=== PATIENT | female | born 1990 | race Two or more races ===

== ENCOUNTER 2017-09-22 09:56 | Emergency (ER) | payer MEDICAID, OTHER ==
[~2017-09-22] VITALS: Ht 152.4 cm; Wt 91.6 kg
[~2017-09-22 09:56] MED LIST: NKM
[2017-09-22 10:36] LABS: APPEARANCE,URINE CLEAR; BILIRUBIN, URINE NEGATIVE (NEGATIVE); COLOR,URINE PALE YELLOW; GLUCOSE, URINE (UA) NEGATIVE (NEGATIVE); KETONES,URINE NEGATIVE (NEGATIVE); LEUKOCYTE ESTERASE ,URINE 1+ (NEGATIVE); NITRITE,URINE NEGATIVE (NEGATIVE); PH,URINE 7 (4.5-8.0); PROTEIN,URINE NEGATIVE (NEGATIVE); UROBILINOGEN,URINE NORMAL MG/DL (0.0-1.0)
[2017-09-22 11:32] VITALS: BP 122/76
--- NOTE | 2017-09-22 15:05 | Diagnostic Imaging Report ---
Indication: Cough Technique: One view of the chest Comparison: none Findings: Lungs and pleural spaces are clear. Heart size is normal. Impression: No acute process This agrees with the preliminary interpretation provided by the emergency room physician
--- NOTE | 2017-09-22 16:11 | Emergency Room Report ---
History of Present Illness General Chief Complaint: Pain Source: Patient Present Illness HPI Patient presents to the emergency department today complaining of cough and congestion and chest discomfort. 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 The pain is worse with palpation and movement. It is on the lateral aspect of her chest. She denies any shortness of breath. Denies any dysuria or urinary frequency. Patient states that she is currently . She denies any leg pain or leg swelling.No other modifying factors. No other associated signs and symptoms. No other complaints were noted.She states that she did have a pelvic ultrasound which showed a positive IUP and good heartbeat she has [facility] follow-up. This was a worker's comp issue. Allergies: Coded Allergies: No Known Allergies (Unverified , 05/04/13) Patient History Past Medical History: none PMH Narrative Past Surgical History: none Pertinent Family History: none Social History: Denies: smoking, alcohol use, drug use Now: Yes - 9 weeks : 3 Para: 3 Reviewed Nursing Documentation: PMH: Agreed; PSxH: Agreed Nursing Documentation-PMH Past Medical History: No Stated History Review of Systems All Other Systems: negative except mentioned in HPI Physical Exam Vital Signs Date Time Temp Pulse Resp B/P (MAP) Pulse Ox O2 Delivery O2 Flow Rate FiO2 09/22/17 10:14 98.2 63 17 122/76 97 Room Air 98.2 Sp02 EP Interpretation: reviewed, normal General Appearance: normal inspection, well appearing, no apparent distress, alert Head: atraumatic Eyes: bilateral eye normal inspection ENT: normal ENT inspection, hearing grossly normal, normal voice Neck: normal inspection, full range of motion, supple, no bony tend Respiratory: normal inspection, lungs clear, normal breath sounds, no respiratory distress, no retraction, no wheezing, other - tender right chest wall Cardiovascular #1: regular rate, rhythm, no edema Gastrointestinal: normal inspection, normal bowel sounds, non tender, soft, no guarding, no hernia Genitourinary: no CVA tenderness Musculoskeletal: normal inspection, back normal, normal range of motion Neurologic: normal inspection, alert, responsive, speech normal Psychiatric: normal inspection, judgement/insight normal, mood/affect normal Skin: normal inspection, normal color, no rash Medical Decision Making Diagnostic Impression: Primary Impression: Chest pain ER Course Patient presents to the emergency department today complaint chest pain after cough. Differential considerations include chest wall strain, pneumothorax, acute coronary syndrome just to name a few. Patient's exam is benign urine test is negative for infection patient's chest x-ray was negative. Patient denies any dysuria urinary frequency. There was some evidence of contamination in the urine. Patient was not given antibiotics instead otherwise follow up as an outpatient.Patient is advised to follow up with primary doctor in 2-3 days and return the emergency room for any worsening symptoms and as needed. Labs Test 09/22/17 10:29 Urine Color Pale yellow Urine Appearance Clear Urine pH 7 (4.5-8.0) Urine Specific [place] 1.005 (1.005-1.035) Urine Protein Negative (NEGATIVE) Urine Glucose (UA) Negative (NEGATIVE) Urine Ketones Negative (NEGATIVE) Urine Occult Blood 2+ (NEGATIVE) Urine Nitrite Negative (NEGATIVE) Urine Bilirubin Negative (NEGATIVE) Urine Urobilinogen Normal MG/DL (0.0-1.0) Urine Leukocyte Esterase 1+ (NEGATIVE) Urine RBC 2-4 /HPF (0 - 2) Urine WBC 2-4 /HPF (0 - 2) Urine Squamous Epithelial Cells Few /LPF (NONE/OCC) Urine Bacteria Occasional /HPF (NONE) Urine HCG, Qualitative Positive (NEGATIVE) Chest X-Ray Diagnostic Results Chest X-Ray Diagnostic Results : Chest X-Ray Ordered: Yes # of Views/Limited/Complete: 1 View Indication: Chest Pain EP Interpretation: No Impression: No acute disease Last Vital Signs Date Time Temp Pulse Resp B/P (MAP) Pulse Ox O2 Delivery O2 Flow Rate FiO2 09/22/17 11:32 98.2 17 122/76 97 Room Air 98.2 09/22/17 10:14 63 Status: improved Disposition: HOME, SELF-CARE Condition: Stable Referrals: NOT CHOSEN IPA/,REFERRING (PCP) Patient Instructions: Chest Wall Pain TRINITY RENE M.D. Sep 22, 2017 16:11
== END 2017-09-22 11:33 | disposition home or self-care (01) ==
LOC: EMR 11:27
DX: O26.891 Other specified pregnancy related conditions, first trimester (principal); Z3A.09 9 weeks gestation of pregnancy; R07.89 Other chest pain; R05 Cough
CPT/HCPCS: 71045; 81003; 81025; 99283